=== PATIENT | male | born 1995 ===

== ENCOUNTER → 2025-06-24 | Outpatient (REF) | payer OTHER ==
[2025-06-24 11:32] LABS: SEMEN APPEARANCE OPAQUE (OPAQUE); SEMEN VISCOSITY VISCOUS (LIQUID); SEMEN VOLUME 2.5 ml (2.0-5.0); SPERM CONCENTRATION 86.3 M/ml (>=15.0); WBC CONCENTRATION <=1 M/ml (<=1 M/ml)
[2025-06-24 11:33] LABS: TOTAL PROGRESSIVE SPERM 95.9 M/Ejac.
== END ==
LOC: M LAB REF 10:31
PROVIDERS: ATTEND Physician Assistant
DX: N46.9 Male infertility, unspecified (principal)